=== PATIENT | female | born 1945 | race Caucasian/White ===

== ENCOUNTER 2017-01-15 15:44 | Inpatient (IN) | payer MEDICARE, OTHER ==
[~2017-01-15] VITALS: Ht 162.6 cm; Wt 75.1 kg
[~2017-01-15 15:44] MED LIST: AMITRIPTYLINE PO; AMLO10TA2 PO; AMLO2.5T PO; AZEL205.2 NAS; BECL8.7A5 INH; CALC-451 PO; CITA10TA4 PO; GLUC1TAB21 PO; KRIL500C PO; LANS30CA PO; METO10TA82 PO; MONT10TA6 PO; MULT-257 PO
[2017-01-15 16:53] LABS: ASPARTATE AMINO TRANSFERASE 23 U/L (15-37); BLOOD UREA NITROGEN 21 mg/dL (7-18)
[2017-01-15] MEDS ORDERED: MORPHINE SULFATE 4 MG/ML, 1ML ONE ×2 (16:57→19:45)
[2017-01-15] MEDS ORDERED: ONDANSETRON 2MG/ML, 2ML ONE (16:57)
[2017-01-15] MEDS ORDERED: ONDANSETRON 2MG/ML, 2ML IVPush ONE (17:00)
[2017-01-15] MEDS: MORPHINE SULFATE 4 MG/ML, 1ML IVPush PRN ×2 (17:04→19:47)
[2017-01-15] MEDS ORDERED: LOSA25TA5 PO (17:18)
[2017-01-15] MEDS ORDERED: BENZOCAINE 20% SPRAY 0.5ML ONE (18:25)
[2017-01-15] MEDS ORDERED: TRAZODONE 50MG TABLET PO PRN (19:00)
[2017-01-15] MEDS ORDERED: ACETAMINOPHEN 325 MG TABLET PO PRN (19:00)
[2017-01-15] MEDS ORDERED: LABETALOL 5MG/ML, 20ML IV PRN (19:00)
[2017-01-15] MEDS: HEPARIN 5,000 UNITS/ML, 1ML SQ SCH (19:42)
[2017-01-15] MEDS: SODIUM CHLORIDE 0.9% 1,000 ML IV SCH ×2 (19:48→23:25)
[2017-01-15 21:15] VITALS: BP 134/80
[2017-01-16 02:40] VITALS: BP 131/45
[2017-01-16] MEDS ORDERED: KETOROLAC 30 MG/1 ML IVPush ONE (04:30)
[2017-01-16] MEDS: SODIUM CHLORIDE 0.9% 1,000 ML IV SCH ×2 (04:37→10:16)
[2017-01-16] MEDS: HEPARIN 5,000 UNITS/ML, 1ML SQ SCH ×3 (04:40→21:44)
[2017-01-16 06:24] LABS: ASPARTATE AMINO TRANSFERASE 20 U/L (15-37); BLOOD UREA NITROGEN 21 mg/dL (7-18)
[2017-01-16 07:35] VITALS: BP 126/68
[2017-01-16] MEDS: LOSARTAN 25MG TABLET PO SCH (09:00)
[2017-01-16] MEDS: CITALOPRAM 10 MG TABLET PO SCH (09:00)
[2017-01-16] MEDS: PANTOPRAZOLE 40 MG IV IVP SCH (09:17)
[2017-01-16 12:25] VITALS: BP 149/81
[2017-01-16] MEDS ORDERED: MORPHINE SULFATE 4 MG/ML, 1ML IVPush PRN (13:00)
[2017-01-16] MEDS: ONDANSETRON 2MG/ML, 2ML IVP PRN (13:09)
[2017-01-16] MEDS: KETOROLAC 30 MG/1 ML IVPush PRN (13:11)
[2017-01-16] MEDS: NS + 20MEQ KCL 1,000 ML IV SCH (16:46)
[2017-01-16 19:42] VITALS: BP 167/82
[2017-01-17 01:51] VITALS: BP 145/77
[2017-01-17] MEDS: KETOROLAC 30 MG/1 ML IVPush PRN ×3 (02:18→22:49)
[2017-01-17] MEDS: NS + 20MEQ KCL 1,000 ML IV SCH (05:45)
[2017-01-17] MEDS: HEPARIN 5,000 UNITS/ML, 1ML SQ SCH ×3 (05:45→22:31)
[2017-01-17 08:03] VITALS: BP 137/70
[2017-01-17] MEDS: LOSARTAN 25MG TABLET PO SCH (08:29)
[2017-01-17] MEDS: CITALOPRAM 10 MG TABLET PO SCH (08:29)
[2017-01-17] MEDS: PANTOPRAZOLE 40 MG IV IVP SCH (08:30)
[2017-01-17] MEDS: ONDANSETRON 2MG/ML, 2ML IVP PRN ×2 (11:52→22:49)
[2017-01-17 13:50] VITALS: BP 155/78
[2017-01-17 19:53] VITALS: BP 149/75
[2017-01-18 03:50] VITALS: BP 136/68
[2017-01-18 06:24] LABS: BLOOD UREA NITROGEN 9 mg/dL (7-18)
[2017-01-18] MEDS: HEPARIN 5,000 UNITS/ML, 1ML SQ SCH ×3 (06:28→21:06)
[2017-01-18] MEDS: LOSARTAN 25MG TABLET PO SCH (07:54)
[2017-01-18] MEDS: CITALOPRAM 10 MG TABLET PO SCH (07:54)
[2017-01-18 08:06] VITALS: BP 128/74
[2017-01-18] MEDS: OMEPRAZOLE 20 MG CAPSULE.DR PO SCH (08:11)
[2017-01-18 13:36] VITALS: BP 136/73
[2017-01-18 19:42] VITALS: BP 145/75
[2017-01-18] MEDS: KETOROLAC 30 MG/1 ML IVPush PRN (21:05)
[2017-01-19 04:20] VITALS: BP 128/62
[2017-01-19] MEDS: HEPARIN 5,000 UNITS/ML, 1ML SQ SCH ×2 (05:11→14:12)
[2017-01-19] MEDS: CITALOPRAM 10 MG TABLET PO SCH (07:29)
[2017-01-19] MEDS: OMEPRAZOLE 20 MG CAPSULE.DR PO SCH (07:29)
[2017-01-19] MEDS: LOSARTAN 25MG TABLET PO SCH (07:30)
[2017-01-19 08:14] VITALS: BP 130/72
[2017-01-19] MEDS ORDERED: BISACODYL 10 MG SUPP PR PRN (10:00)
[2017-01-19] MEDS ORDERED: POLYETHYLENE GLYCOL 17 GM PACKET PO ONE (10:00)
[2017-01-19 15:01] VITALS: BP 159/76
[2017-01-20] MEDS ORDERED: POLYETHYLENE GLYCOL 17 GM PACKET PO SCH (09:00)
== END 2017-01-19 15:35 | disposition home or self-care (01) | DRG 388 ==
LOC: ED 16:16 → EDIP 19:51 → 3NE 21:20
PROVIDERS: ADMIT Internal Medicine
DX: K56.60 Unspecified intestinal obstruction (principal); N17.0 Acute kidney failure with tubular necrosis; I10 Essential (primary) hypertension; E86.0 Dehydration; E21.0 Primary hyperparathyroidism; F32.9 Major depressive disorder, single episode, unspecified; K21.9 Gastro-esophageal reflux disease without esophagitis; D64.9 Anemia, unspecified; D72.828 Other elevated white blood cell count; M19.90 Unspecified osteoarthritis, unspecified site; Z66 Do not resuscitate; Z80.3 Family history of malignant neoplasm of breast; Z82.3 Family history of stroke; Z82.49 Family history of ischemic heart disease and other diseases of the circulatory system; Z80.52 Family history of malignant neoplasm of bladder; Z85.828 Personal history of other malignant neoplasm of skin; Z90.710 Acquired absence of both cervix and uterus; Z88.1 Allergy status to other antibiotic agents
CPT/HCPCS: 36415; 74000; 74176; 80048; 80053; 81001; 83690; 83735; 83970; 84439; 84443; 85025; 85610; 85730; 87086; 96361; 96374; 96375; 96376; J1644; J1885; J2405; J3480; C9113; J7030

== ENCOUNTER → 2018-02-21 | Outpatient (CLI) | payer MEDICARE, OTHER ==
[~2018-02-21] MED LIST changes: -BECL8.7A5 INH; +BECL8.7A7 INH; +LOSA25TA5 PO
== END | disposition home or self-care (01) ==
LOC: CFH 12:52
PROVIDERS: ATTEND Family Medicine
DX: M81.0 Age-related osteoporosis without current pathological fracture (principal); N95.8 Other specified menopausal and perimenopausal disorders
CPT/HCPCS: 77080

== ENCOUNTER → 2019-10-19 | Outpatient (CLI) | payer MEDICARE ==
[~2019-10-19] MED LIST changes: -AMLO10TA2 PO; +AMLO10TA8 PO; -AMLO2.5T PO; +AMLO2.5T5 PO; +AZEL205. NAS; +CITA10TA8 PO; +GABA300C10 PO; +LOSA25TA25 PO; -LOSA25TA5 PO; +OMNIPAQUE 350 MG/ML, 100ML BOTTLE ONE
== END | disposition home or self-care (01) ==
LOC: CFH 13:19
PROVIDERS: ATTEND Family Medicine
DX: K76.0 Fatty (change of) liver, not elsewhere classified (principal); M19.90 Unspecified osteoarthritis, unspecified site; R10.13 Epigastric pain
CPT/HCPCS: 74177; Q9967

== ENCOUNTER 2020-12-29 09:30 | Outpatient (CLI) | payer MEDICARE ==
[~2020-12-29 09:30] MED LIST changes: +AMLO-211 PO; -AMLO10TA8 PO; -OMNIPAQUE 350 MG/ML, 100ML BOTTLE ONE
== END 2020-12-29 23:59 | disposition home or self-care (01) ==
LOC: CFH 09:30
PROVIDERS: ATTEND Family Medicine
DX: M81.0 Age-related osteoporosis without current pathological fracture (principal)
CPT/HCPCS: 77080